=== PATIENT | female | born 1975 | race Caucasian/White ===

== ENCOUNTER → 2016-06-09 | Outpatient (CLI) | payer BC ==
[~2016-06-09] MED LIST: AMPH20TA2 PO; B-COTAB18 PO; BACL10TA PO; CALCTAB5 PO; CHOL1TAB46 PO; CLR10 PO; GABA-113 PO; IMT100 PO; LEVO88TA3 PO; LINA1CAP PO; METH-307 PO; METO-157 PO; MULT-506 PO; ONDA4TAB65 PO; PRT/40 PO; SUCR1TAB29 PO; SYN125 PO; TRAM-453 PO
[2016-06-09 19:15] LABS: ALKALINE PHOSPHATASE 81 U/L (45-117); ALT/SGPT 39 U/L (12-78); AST/SGOT 27 U/L (15-37)
== END | disposition home or self-care (01) ==
LOC: C.LABBFT 11:49
PROVIDERS: ATTEND Psychiatry & Neurology Neurology
DX: G35 Multiple sclerosis (principal)

== ENCOUNTER → 2016-07-05 | Outpatient (CLI) | payer BC ==
[2016-07-05 13:16] LABS: ALKALINE PHOSPHATASE 71 U/L (45-117); ALT/SGPT 56 U/L (12-78); AST/SGOT 36 U/L (15-37)
== END | disposition home or self-care (01) ==
LOC: C.LAB1850 11:43
PROVIDERS: ATTEND Psychiatry & Neurology Neurology
DX: E55.9 Vitamin D deficiency, unspecified (principal); G35 Multiple sclerosis

== ENCOUNTER → 2016-08-11 | Outpatient (CLI) | payer BC ==
[2016-08-11 15:24] LABS: ALKALINE PHOSPHATASE 76 U/L (45-117); ALT/SGPT 28 U/L (12-78); AST/SGOT 18 U/L (15-37)
== END | disposition home or self-care (01) ==
LOC: C.LAB1850 13:52
PROVIDERS: ATTEND Psychiatry & Neurology Neurology
DX: G35 Multiple sclerosis (principal)

== ENCOUNTER → 2016-09-13 | Outpatient (CLI) | payer BC ==
[~2016-09-13] MED LIST changes: +PANT40TA2 PO; -PRT/40 PO
[2016-09-13 14:18] LABS: THYROID STIMULATING HORMONE 0.007 uIu/ml (0.300-4.500)
== END | disposition home or self-care (01) ==
LOC: C.LAB1850 11:02
PROVIDERS: ATTEND Psychiatry & Neurology Neurology
DX: G35 Multiple sclerosis (principal); E03.9 Hypothyroidism, unspecified

== ENCOUNTER → 2016-09-13 | Outpatient (CLI) | payer BC ==
--- NOTE | 2016-09-13 11:28 | DIAGNOSTIC IMAGING REPORT ---
CHEST 2 VIEWS ROUTINE HISTORY: R06.02 Shortness of [id number] COMPARISON: Chest 01/25/2010. FINDINGS: The lungs are clear. Cardiac silhouette is normal in size. No pleural effusions. No pneumothorax. Cholecystectomy. 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 IMPRESSION: No acute process. Electronically signed by: Travis Underwood M.D. 09/13/2016 11:26 AM Dictated Date/Time: 09/13/2016 11:25 AM
== END | disposition home or self-care (01) ==
LOC: C.RAD1850 11:04
PROVIDERS: ATTEND Internal Medicine
DX: R06.02 Shortness of breath (principal)

== ENCOUNTER → 2016-09-22 | Outpatient (CLI) | payer BC ==
[~2016-09-22] MED LIST changes: +GADAVIST IV PRN
--- NOTE | 2016-09-22 16:47 | DIAGNOSTIC IMAGING REPORT ---
THORACIC SPINE MRI HISTORY: Back pain. Multiple sclerosis. TECHNIQUE: Multiplanar multisequence MRI of the thoracic spine was performed without the use of contrast. COMPARISON: Thoracic spine MRI 03/24/2014. FINDINGS: Alignment and curvature are intact. No fracture or subluxation. No significant central canal or neural foraminal narrowing. The thoracic spinal cord is normal in course, caliber, and signal intensity. 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 T1 vertebral body hemangioma remain stable. Mild disc space narrowing seen at T10-T11 and T12-L1, unchanged. IMPRESSION: No change from the prior study. Normal thoracic spinal cord signal and caliber. Electronically signed by: Travis Underwood M.D. 09/22/2016 4:46 PM Dictated Date/Time: 09/22/2016 4:41 PM
--- NOTE | 2016-09-22 17:25 | DIAGNOSTIC IMAGING REPORT ---
MRI CERVICAL SPINE COMBO CLINICAL HISTORY: Multiple sclerosis. Recent neck pain with bilateral arm radiculopathy. TECHNIQUE: Sagittal and axial T1, T2 and STIR images were obtained. Imaging was performed before and after the administration of 5.5 cc of intravenous Gadavist. COMPARISON STUDY: 10/19/2015 There are no suspicious areas of marrow replacement. No intrinsic cervical cord lesions are visualized. There is a T1 focal fatty rest/hemangioma. There is minor cervical tonsillar ectopia (4 mm), unchanged the prior study C2-3: There is no evidence of disc bulge or focal herniation. There is no spinal or foraminal stenosis. C3-4: There is no evidence of disc bulge or focal herniation. There is no spinal or foraminal stenosis. C4-5: There are no disc bulges or focal herniations. There is no spinal or foraminal stenosis. C5-6 :There is a minimal circumferential disc bulge. There is no significant spinal stenosis. There is minor bilateral foraminal narrowing C6-7: There is no evidence of disc bulge or focal herniation. There is no evidence of spinal or foraminal stenosis. C7-T1: There is no evidence of disc bulge or focal herniation. There is no evidence of spinal or foraminal stenosis. Postcontrast images reveal no pathologically enhancing lesions. IMPRESSION: 1. 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 Minor degenerative changes at the C5-6 level 3. No cervical cord lesions identified 4. No evidence of pathologic enhancement Electronically signed by: Ta Kelly M.D. 09/22/2016 5:23 PM Dictated Date/Time: 09/22/2016 5:18 PM
== END | disposition home or self-care (01) ==
LOC: C.MRI 15:45
PROVIDERS: ATTEND Physician Assistant
DX: G35 Multiple sclerosis (principal)

== ENCOUNTER → 2017-02-21 | Outpatient (CLI) | payer BC ==
[~2017-02-21] MED LIST changes: -GADAVIST IV PRN; -LEVO88TA3 PO; -METO-157 PO; -PANT40TA2 PO; +PRT/40 PO
--- NOTE | 2017-02-22 07:57 | MAMMOGRAPHY REPORT ---
BILATERAL DIGITAL SCREENING MAMMOGRAM WITH CAD: 02/21/2017 CLINICAL HISTORY: Patient presents for routine screening. S/P bilateral augmentation. TECHNIQUE: Bilateral CC and MLO views of the breasts with and without implant displacement views were obtained. Current study was also evaluated with a Computer Aided Detection (CAD) system. COMPARISON: Comparison is made to exam dated: 01/18/2016 mammogram - [facility]. BREAST COMPOSITION: The tissue of both breasts is heterogeneously dense, which may obscure small mas ses. FINDINGS: Bilateral subpectoral saline implants are intact. No suspicious mass, architectural distor tion or cluster of microcalcifications is seen. IMPRESSION: ACR BI-RADS CATEGORY 1: NEGATIVE There is no mammographic evidence of malignancy. A 1 year screening mammogram is recommended. The pa tient will receive written notification of the results. Approximately 10% of breast cancers are not detected with mammography. A negative mammographic report should not delay biopsy if a clinically suggestive mass is present. Scarlett Presley M.D. ay/:02/21/2017 21:25:47 Door Core Assembler: Vangie FUNEZ(Ying)(Vanesa), [facility] letter sent: Normal 1/2 BI-RADS Code: ACR BI-RADS Category 1: Negative
== END | disposition home or self-care (01) ==
LOC: C.MAMM 10:37
PROVIDERS: ATTEND Internal Medicine
DX: Z12.31 Encounter for screening mammogram for malignant neoplasm of breast (principal); Z98.82 Breast implant status

== ENCOUNTER → 2017-03-07 | Outpatient (CLI) | payer BC ==
[2017-03-07 17:46] LABS: BASO % 0.7 %; BASO ABS # 0.03 K/uL (0-0.2); COMPLETE YES; EOS % 1.1 %; HEMATOCRIT 42.9 % (37-47); LYMPH % 28.9 %; LYMPH ABS # 1.32 K/uL (1.2-3.4); MEAN CELL VOLUME 94.3 fL (80-100); MEAN CORPUSCULAR HEMOGLOBIN 32.1 pg (25-34); MEAN PLATELET VOLUME 11.1 fL (7.4-10.4); MONO % 9.9 %; NEUT % 59.4 %; PLATELET COUNT 219 K/uL (130-400); RED BLOOD COUNT 4.55 M/uL (4.2-5.4); WHITE BLOOD COUNT 4.56 K/uL (4.8-10.8)
[2017-03-07 18:01] LABS: ALT/SGPT 27 U/L (12-78); AST/SGOT 21 U/L (15-37); BLOOD UREA NITROGEN 16 mg/dl (7-18); BUN/CREATININE RATIO 26.5 (10-20); CALCIUM 9.1 mg/dl (8.5-10.1); CARBON DIOXIDE 27 mmol/L (21-32); CHLORIDE 107 mmol/L (98-107); GLUCOSE 78 mg/dl (70-99); SODIUM 138 mmol/L (136-145)
[2017-03-07 18:03] LABS: ALB/GLOB RATIO 1.3 (0.9-2); ALKALINE PHOSPHATASE 73 U/L (45-117); RHEUMATOID FACTOR < 10.0 U/mL (0-15)
== END | disposition home or self-care (01) ==
LOC: C.LABBFT 11:50
PROVIDERS: ATTEND Internal Medicine
DX: M25.50 Pain in unspecified joint (principal); H04.123 Dry eye syndrome of bilateral lacrimal glands; R19.4 Change in bowel habit; R21 Rash and other nonspecific skin eruption

== ENCOUNTER → 2017-05-16 | Outpatient (CLI) | payer BC ==
[~2017-05-16] MED LIST changes: +AMPH10TA2 PO; +CALC-393 PO; +OCRE300I IV; +PANT40TA2 PO; +POLY335019 PO; -PRT/40 PO; +RIZA10TA18 PO; +TOPI50TA16 PO; +TRAM-10 PO
== END | disposition home or self-care (01) ==
LOC: C.LABBFT 15:14
PROVIDERS: ATTEND Psychiatry & Neurology Neurology
DX: A69.20 Lyme disease, unspecified (principal); E55.9 Vitamin D deficiency, unspecified

== ENCOUNTER → 2017-06-15 | Outpatient (CLI) | payer BC ==
[~2017-06-15] MED LIST changes: -AMPH10TA2 PO; -CALC-393 PO; -OCRE300I IV; -POLY335019 PO; -RIZA10TA18 PO; -TOPI50TA16 PO; -TRAM-10 PO
--- NOTE | 2017-06-15 13:01 | DIAGNOSTIC IMAGING REPORT ---
R WRIST MIN 3 VIEWS ROUTINE CLINICAL HISTORY: M25.539 right wrist pain. Trauma. Patient fell on ice. COMPARISON: None. DISCUSSION: No fractures or dislocations are visualized. There are no erosive or destructive changes. IMPRESSION: No fractures or dislocations identified. Electronically signed by: Ta Kelly M.D. 06/15/2017 1:00 PM Dictated Date/Time: 06/15/2017 12:59 PM
[2017-06-15 13:14] LABS: BASO % 0.2 %; BASO ABS # 0.01 K/uL (0-0.2); EOS % 0.7 %; EOS ABS # 0.03 K/uL (0-0.5); HEMATOCRIT 41.4 % (37-47); HEMOGLOBIN 14.5 g/dL (12.0-16.0); LYMPH % 36.6 %; LYMPH ABS # 1.65 K/uL (1.2-3.4); MEAN CELL VOLUME 93.7 fL (80-100); MEAN CORPUSCULAR HEMOGLOBIN 32.8 pg (25-34); MEAN PLATELET VOLUME 10.7 fL (7.4-10.4); MONO % 8.6 %; MONO ABS # 0.39 K/uL (0.11-0.59); NEUT % 53.9 %; NEUT ABS # 2.43 K/uL (1.4-6.5); PLATELET COUNT 189 K/uL (130-400); RED CELL DISTRIBUTION WIDTH SD 44.5 fL (36.4-46.3); WHITE BLOOD COUNT 4.51 K/uL (4.8-10.8)
[2017-06-15 17:02] LABS: ALBUMIN 3.9 gm/dl (3.4-5.0); ALT/SGPT 23 U/L (12-78); AST/SGOT 15 U/L (15-37); BLOOD UREA NITROGEN 11 mg/dl (7-18); CALCIUM 8.9 mg/dl (8.5-10.1); CARBON DIOXIDE 26 mmol/L (21-32); CREATININE 0.54 mg/dl (0.60-1.20); GLUCOSE 84 mg/dl (70-99); POTASSIUM 3.6 mmol/L (3.5-5.1); SODIUM 136 mmol/L (136-145)
[2017-06-15 17:05] LABS: ALKALINE PHOSPHATASE 68 U/L (45-117); TOTAL PROTEIN 7.4 gm/dl (6.4-8.2)
== END | disposition home or self-care (01) ==
LOC: C.RADBC 11:59
PROVIDERS: ATTEND Physician Assistant
DX: M25.539 Pain in unspecified wrist (principal)

== ENCOUNTER → 2017-06-29 | Outpatient (CLI) | payer BC ==
[~2017-06-29] MED LIST changes: +GADAVIST IV PRN; +TOPI50TA16 PO
--- NOTE | 2017-06-29 12:47 | DIAGNOSTIC IMAGING REPORT ---
MRI CERVICAL SPINE COMBO CLINICAL HISTORY: G35 Multiple [id number] TECHNIQUE: Sagittal and axial T1, T2 and STIR images were obtained. Imaging was acquired before and after the administration of 5.5 cc of intravenous Gadavist COMPARISON STUDY: 09/22/2016 There is an equivocal increased T2 signal within the inferior medulla. No lesions within spinal cord proper are visualized. C2-3: There is no evidence of disc bulge or focal herniation. There is no spinal or foraminal stenosis. C3-4: There is no evidence of disc bulge or focal herniation. There is no spinal or foraminal stenosis. C4-5: There are no disc bulges or focal herniations. There is no spinal or foraminal stenosis. C5-6 :There is a mild circumferential disc bulge. There is no significant spinal stenosis. There is minor bilateral foraminal narrowing C6-7: There is no evidence of disc bulge or focal herniation. There is no evidence of spinal or foraminal stenosis. C7-T1: There is no evidence of disc bulge or focal herniation. There is no evidence of spinal or foraminal stenosis. Postcontrast images reveal no pathologically enhancing lesions. There is minor cerebellar tonsillar ectopia, unchanged the prior study. IMPRESSION: 1. Minor degenerative changes the C5-6 level 2. Minor cerebellar tonsillar ectopia, unchanged the prior study 3. No cervical cord lesions identified 4. Equivocal subtle increased T2 signal within the inferior medulla Electronically signed by: Ta Kelly M.D. 06/29/2017 12:46 PM Dictated Date/Time: 06/29/2017 12:40 PM
--- NOTE | 2017-06-29 12:49 | DIAGNOSTIC IMAGING REPORT ---
MRI OF THE BRAIN COMBO CLINICAL HISTORY: Multiple sclerosis. Headache. COMPARISON STUDY: MRI of the brain dated 02/29/2016 and 11/20/2014. TECHNIQUE: MRI of the brain was performed utilizing various T1 and T2-weighted sequences in the axial, sagittal, and coronal planes. Contrast-enhanced sequences were acquired following the administration of 5.5 cc of Gadavist. The examination is performed using the multiple sclerosis protocol. FINDINGS: Brain parenchyma: There are scattered foci of T2 signal in amount is identified within the subcortical and periventricular white matter. The largest focus is present in the left frontal white matter and measures 9 mm. These lesions are not changed in size or distribution dating back to 11/20/2014. No abnormal enhancement is identified within these lesions on the postcontrast sequences. There is no hemorrhage or mass effect. There is no restricted diffusion to suggest acute ischemia. No enhancing mass lesion is identified on the postcontrast images. Rolon-white matter differentiation is preserved. No extra-axial fluid collection is seen. There is mild cerebellar tonsillar ectopia. The cerebellar tonsils project approximately 5 mm below the foramen magnum. Ventricles, sulci, and cisterns: Normal in configuration. Pituitary and sella: Unremarkable. Intracranial vasculature: Normal flow voids are maintained at the skull base. Orbits: The bony orbits are grossly intact. Orbital contents are normal in appearance. Sinuses and mastoids: Clear. Calvarium: Unremarkable. Cervical cord: Partially visualized cervical spinal cord is normal in morphology and signal intensity. IMPRESSION: 1. No acute intracranial abnormality. 2. Scattered foci of T2 signal abnormality are again seen within the subcortical and periventricular white matter. These are nonspecific but would be consistent with the reported clinical history of multiple sclerosis. These lesions have not significantly changed in size or distribution dating back to the 11/20/2014 examination. No abnormal enhancement is identified to suggest active demyelination. Electronically signed by: Mode Vazquez M.D. 06/29/2017 12:47 PM Dictated Date/Time: 06/29/2017 12:38 PM
== END | disposition home or self-care (01) ==
LOC: C.MRI 11:10
PROVIDERS: ATTEND Physician Assistant
DX: G35 Multiple sclerosis (principal)

== ENCOUNTER → 2017-09-19 | Outpatient (CLI) | payer BC ==
[~2017-09-19] MED LIST changes: -GABA-113 PO; -GADAVIST IV PRN; +OCRE300I IV; -TRAM-453 PO
== END | disposition home or self-care (01) ==
LOC: C.LAB1850 10:37
PROVIDERS: ATTEND Internal Medicine Endocrinology, Diabetes & Metabolism
DX: E03.9 Hypothyroidism, unspecified (principal)